=== PATIENT | female | born 2005 | race Caucasian/White ===

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

== ENCOUNTER 2024-01-15 15:06 | Emergency (ER) | payer OTHER ==
[~2024-01-15] VITALS: Ht 162.6 cm; Wt 74.8 kg
[~2024-01-15 15:06] MED LIST changes: +NAPR-337 PO; -NAPR-54 PO; +ONDA-188 SL
[2024-01-15 15:20] VITALS: BP 109/65; PULSE 116; RESP 18; TEMP 97.2; O2SAT 97
[2024-01-15] MEDS: ONDANSETRON 4 MG ODT PO ONE (15:51)
[2024-01-15] MEDS: NACL 0.9% 1,000 ML IV ONE (16:13)
[2024-01-15] MEDS ORDERED: ALUMINUM HYD/MAG/SIMETHICONE 30 ML UDC ONE (16:17)
[2024-01-15] MEDS ORDERED: DICYCLOMINE HCL LIQUID 10 MG/5 ML UDC ONE (16:18)
[2024-01-15] MEDS: DICYCLOMINE HCL LIQUID 20 MG, ALUMINUM HYD/MAG/SIMETHICONE 30 ML, LIDOCAINE VISCOUS 2% ... PO ONE (16:19)
[2024-01-15] MEDS: PANTOPRAZOLE 40 MG TABEC PO ONE (16:20)
[2024-01-15] MEDS ORDERED: ONDA-188 SL (17:28)
[2024-01-15 17:36] VITALS: BP 137/69; PULSE 70; RESP 18; TEMP 98.4; O2SAT 98
== END 2024-01-15 17:45 | disposition home or self-care (01) ==
LOC: MED 15:06
DX: A05.9 Bacterial foodborne intoxication, unspecified (principal); Z79.1 Long term (current) use of non-steroidal anti-inflammatories (NSAID); Z79.899 Other long term (current) drug therapy
CPT/HCPCS: 81002; 81025; 96360; 99284; J7030; Q0162

== ENCOUNTER 2024-03-02 14:43 | Emergency (ER) | payer OTHER ==
[~2024-03-02] VITALS: Ht 162.6 cm; Wt 74.8 kg
[2024-03-02 15:05] VITALS: BP 129/71; PULSE 114; RESP 20; TEMP 98.1; O2SAT 100
[2024-03-02 15:51] LABS: BASOPHILS % (AUTO) 0.5 % (0.0-2.0); EOSINOPHILS # (AUTO) 0.2 K/uL (0-0.4); EOSINOPHILS % (AUTO) 2.3 % (0.0-4.0); HEMATOCRIT 38.2 % (36-48); HEMOGLOBIN 13.2 g/dL (12.0-16.0); LYMPHOCYTES # (AUTO) 1.5 K/uL (2.5-16.5); LYMPHOCYTES % (AUTO) 23.2 % (20.5-51.1); MEAN CORPUSCULAR HEMOGLOBIN 28 pg (27-31); MEAN CORPUSCULAR HGB CONC 35 g/dL (33-37); MEAN CORPUSCULAR VOLUME 81.9 fL (80-94); MONOCYTES # (AUTO) 0.6 K/uL (0.8-1.0); MONOCYTES % (AUTO) 9.2 % (1.7-9.3); NEUTROPHILS # (AUTO) 4.3 K/uL (1.8-7.7); NEUTROPHILS % (AUTO) 64.8 % (42.2-75.2); PLATELET COUNT (AUTO) 229 K/uL (140-450); RED BLOOD CELL COUNT(AUTO) 4.67 MIL/uL (4.20-5.40); RED CELL DISTRIBUTION WIDTH 13.7 % (11.6-13.7); WHITE BLOOD COUNT (AUTO) 6.6 K/uL (4.5-11.0)
[2024-03-02 17:13] VITALS: BP 139/50; PULSE 99; RESP 18; TEMP 98; O2SAT 100
== END 2024-03-02 17:12 | disposition home or self-care (01) ==
LOC: MED 14:43
DX: O20.0 Threatened abortion (principal); Z3A.01 Less than 8 weeks gestation of pregnancy; Z79.899 Other long term (current) drug therapy
CPT/HCPCS: 36415; 76801; 81025; 84702; 85025; 86900; 86901; 99284; Q0092

== ENCOUNTER 2024-03-05 17:03 | Emergency (ER) | payer OTHER ==
[~2024-03-05] VITALS: Ht 162.6 cm; Wt 74.8 kg
[2024-03-05 17:16] VITALS: BP 122/62; PULSE 90; RESP 16; TEMP 98.3; O2SAT 100
== END 2024-03-05 19:04 | disposition home or self-care (01) ==
LOC: MED 17:03
DX: O02.81 Inappropriate change in quantitative human chorionic gonadotropin (hCG) in early pregnancy (principal); Z3A.01 Less than 8 weeks gestation of pregnancy; Z79.899 Other long term (current) drug therapy
CPT/HCPCS: 36415; 84702; 99283

== ENCOUNTER 2024-04-13 14:33 | Emergency (ER) | payer OTHER ==
[~2024-04-13] VITALS: Ht 162.6 cm; Wt 72.6 kg
[2024-04-13 14:44] VITALS: BP 112/57; PULSE 77; RESP 16; TEMP 98.2; O2SAT 99
[2024-04-13 15:00] VITALS: O2SAT 98
[2024-04-13 15:27] LABS: BASOPHILS # (AUTO) 0.1 K/uL (0.00-0.22); BASOPHILS % (AUTO) 0.8 % (0.0-2.0); EOSINOPHILS # (AUTO) 0.1 K/uL (0-0.4); EOSINOPHILS % (AUTO) 2.1 % (0.0-4.0); HEMATOCRIT 32.7 % (36-48); HEMOGLOBIN 11.2 g/dL (12.0-16.0); LYMPHOCYTES # (AUTO) 1.5 K/uL (2.5-16.5); LYMPHOCYTES % (AUTO) 20.6 % (20.5-51.1); MEAN CORPUSCULAR HEMOGLOBIN 28 pg (27-31); MEAN CORPUSCULAR HGB CONC 34 g/dL (33-37); MEAN CORPUSCULAR VOLUME 81.6 fL (80-94); MONOCYTES # (AUTO) 0.6 K/uL (0.8-1.0); NEUTROPHILS # (AUTO) 4.9 K/uL (1.8-7.7); NEUTROPHILS % (AUTO) 68.5 % (42.2-75.2); PLATELET COUNT (AUTO) 179 K/uL (140-450); RED BLOOD CELL COUNT(AUTO) 4.01 MIL/uL (4.20-5.40); RED CELL DISTRIBUTION WIDTH 14.2 % (11.6-13.7); WHITE BLOOD COUNT (AUTO) 7.1 K/uL (4.5-11.0)
[2024-04-13 16:39] VITALS: BP 116/59; PULSE 75; RESP 16; TEMP 98; O2SAT 98
[2024-04-13 17:24] LABS: APPEARANCE,URINE SL CLOUDY (CLEAR); BILIRUBIN,URINE NEGATIVE (NEGATIVE); BLOOD, URINE TRACE-I (NEGATIVE); COLOR,URINE YELLOW (YELLOW); LEUKOCYTE ESTERASE ,URINE 3+ (NEGATIVE); NITRITE, URINE NEGATIVE (NEGATIVE); PROTEIN,URINE NEGATIVE (NEGATIVE); UGLUCOSE NEGATIVE (NEGATIVE); UROBILINOGEN,URINE 0.2 EU/dL (0.2 - 1)
[2024-04-13 17:48] LABS: RBC,URINE 0-5 /HPF (0-5)
[2024-04-13 17:49] LABS: BACTERIA,URINE 2+ /HPF (None Seen); MUCUS,URINE None Seen /LPF (None Seen); SQUAMOUS EPITHELIAL CELL,UR 4-10 (MOD) /LPF (0-3 (FEW))
[2024-04-13] MEDS ORDERED: CEPH-588 PO (18:29)
== END 2024-04-13 17:12 | disposition home or self-care (01) ==
LOC: MED 14:33
DX: O36.4XX0 Maternal care for intrauterine death, not applicable or unspecified (principal); O23.41 Unspecified infection of urinary tract in pregnancy, first trimester; Z3A.11 11 weeks gestation of pregnancy; Z79.899 Other long term (current) drug therapy
CPT/HCPCS: 36415; 76801; 81001; 84702; 85025; 87086; 99284; Q0092